=== PATIENT | female | born 1980 | race Caucasian/White ===

== ENCOUNTER 2024-12-30 06:23 | Inpatient (IN) | payer BC ==
[2024-12-30] MEDS ORDERED: BUPIVACAINE HCL/PF 0.5% (5MG/ML) 10 ML VIAL ONE (08:08)
[2024-12-30] MEDS ORDERED: SUCCINYLCHOLINE CHLORIDE 200 MG/10 ML SYRINGE ONE (09:06)
[2024-12-30] MEDS ORDERED: PROPOFOL 20 ML ONE (09:06)
[2024-12-30] MEDS ORDERED: LIDOCAINE HCL/PF 2% SDV 5ML VIAL ONE (09:06)
[2024-12-30] MEDS ORDERED: ROCURONIUM BROMIDE 50 MG/5 ML SYRINGE ONE ×3 (09:07→13:31)
[2024-12-30] MEDS ORDERED: MIDAZOLAM HCL 2 MG/2 ML SINGLE DOSE VIAL ONE (09:07)
[2024-12-30] MEDS ORDERED: DEXAMETHASONE SOD PHOSPHATE 4 MG/1 ML VIAL ONE (10:18)
[2024-12-30] MEDS ORDERED: METHYLENE BLUE 50 MG/10 ML AMPUL ONE (11:05)
[2024-12-30] MEDS ORDERED: NALOXONE HCL 0.4 MG/ML VIAL IVPUSH PRN (11:42)
[2024-12-30] MEDS ORDERED: SUGAMMADEX SODIUM 200 MG/2 ML VIAL ONE (11:46)
[2024-12-30] MEDS ORDERED: KETOROLAC TROMETHAMINE 30 MG/1 ML VIAL ONE (13:49)
[2024-12-30] MEDS: ACETAMINOPHEN 1000 MG/100 ML BAG IVPB ONE (14:53)
[2024-12-30] MEDS: HYDROmorphone *PCA* 10MG/50ML DISP.SYRIN PCA SCH (15:48)
[2024-12-30] MEDS: LACTATED RINGERS SOLUTION 1,000 ML IV SCH (16:15)
[2024-12-30 16:33] LABS: ABSOLUTE IMMATURE GRANULOCYTES 0.20 x10^3/uL (0.0-0.031); BASOPHILS # 0.06 x10^3/uL (0.01-0.08); EOSINOPHIL % 0.0 % (0.7-5.8); EOSINOPHILS # 0.00 x10^3/uL (0.04-0.36); MCHC 32.7 g/dl (32.2-35.5); MEAN CELL VOLUME 91.5 fl (79.4-94.8); MEAN PLT VOLUME 11.5 fl (9.4-12.3); MONOCYTE # 0.72 x10^3/uL (0.24-0.86); MONOCYTE % 3.0 % (4.7-12.5); RDW 12.6 % (12.2-17.1)
[2024-12-30 17:05] VITALS: RESP 18
[2024-12-30] MEDS ORDERED: IBUPROFEN 800 MG/8 ML IJ IVPB PRN (17:17)
[2024-12-30] MEDS: ACETAMINOPHEN 1000 MG/100 ML BAG IVPB SCH (17:40)
[2024-12-30] MEDS: ONDANSETRON 4 MG/2 ML VIAL IVPUSH PRN (18:13)
[2024-12-30] MEDS: CEFAZOLIN SODIUM 2 GM in DEXTROSE 5%-WATER 100 ML IVPB SCH (19:03)
[2024-12-30] MEDS: ONDANSETRON 4 MG/2 ML VIAL IVPB PRN (21:16)
[2024-12-30] MEDS: ONDANSETRON 4 MG/2 ML VIAL IVPB ONE (21:19)
[2024-12-30] MEDS: FAMOTIDINE 20 MG TABLET PO SCH (22:24)
[2024-12-30] MEDS: ROSUVASTATIN CA 20 MG TABLET PO SCH (22:29)
[2024-12-31 07:31] LABS: MCHC 31.9 g/dl (32.2-35.5); MEAN CELL VOLUME 92.6 fl (79.4-94.8); MEAN PLT VOLUME 10.7 fl (9.4-12.3); RDW 12.6 % (12.2-17.1)
[2024-12-31 08:00] LABS: CREATININE 1.0 mg/dL (0.55-1.3)
[2024-12-31] MEDS: PANTOPRAZOLE 40 MG TABLET PO SCH (09:13)
[2024-12-31] MEDS: MONTELUKAST NA 10 MG TABLET PO ONE (09:13)
[2024-12-31] MEDS: NEBIVOLOL 10 MG TABLET (FP) PO SCH (09:13)
[2024-12-31] MEDS: HYDROCHLOROTHIAZIDE 25 MG TABLET (FP) PO SCH (09:14)
[2024-12-31] MEDS: ALBUTEROL SO4 0.083% IH SOL 2.5 MG/3 ML VIAL.NEB. NEB ONE (09:30)
[2024-12-31] MEDS: IBUPROFEN 800 MG/8 ML IJ IVPB SCH (09:48)
[2024-12-31 15:29] VITALS: BP 113/63; PULSE 85; TEMP 97.3
== END 2024-12-31 16:39 | disposition home or self-care (01) | DRG 743 ==
LOC: JASUSAT 06:23 → EDSTATUS 09:00 → J2C 14:30 → J3W 16:33
PROVIDERS: ADMIT Obstetrics & Gynecology; ATTEND Obstetrics & Gynecology
PROC: 0DNW4ZZ Release Peritoneum, Percutaneous Endoscopic Approach (ICD-10-PCS; 2024-12-30)
PROC: 0TJB8ZZ Inspection of Bladder, Via Natural or Artificial Opening Endoscopic (ICD-10-PCS; 2024-12-30)
PROC: 0UT9FZZ Resection of Uterus, Via Natural or Artificial Opening With Percutaneous Endoscopic Assistance (ICD-10-PCS; principal; 2024-12-30 09:00)
PROC: 0UT7FZZ Resection of Bilateral Fallopian Tubes, Via Natural or Artificial Opening With Percutaneous Endoscopic Assistance (ICD-10-PCS; 2024-12-30 09:00)
DX: N92.0 Excessive and frequent menstruation with regular cycle (principal); D25.9 Leiomyoma of uterus, unspecified; N94.6 Dysmenorrhea, unspecified; N80.00 Endometriosis of the uterus, unspecified
CPT/HCPCS: 36415; 81025; 82565; 85025; 85027; 86850; 86900; 86901; 88307-TC; 88341-TC; 88342-TC; 94640; 94760; Q9968